=== PATIENT | male | born 1950 | race Caucasian/White ===

== ENCOUNTER 2020-02-29 21:27 | Inpatient (IN) | payer OTHER ==
[~2020-02-29] VITALS: Ht 172.7 cm; Wt 59.4 kg
[2020-02-29 23:00] VITALS: BP 136/69
[2020-02-29] MEDS ORDERED: VITCB500GO PO (23:29)
[2020-02-29] MEDS ORDERED: ASA81BEC PO (23:29)
[2020-02-29] MEDS ORDERED: VITAMIN D3 PO (23:31)
[2020-02-29] MEDS ORDERED: CLONAZEPAM 0.50.5 M1 PO (23:32)
[2020-02-29] MEDS ORDERED: CO-ENZYME Q101 EACH PO (23:33)
[2020-02-29] MEDS ORDERED: RAZADYNE ER24 MG PO (23:34)
[2020-02-29] MEDS ORDERED: FLONASE 0.05%50 MCG NASAL (23:34)
[2020-02-29] MEDS ORDERED: IPRATROPIUM BRO15 ML NASAL (23:37)
[2020-02-29] MEDS ORDERED: NIZORAL120 ML TOP (23:38)
[2020-02-29] MEDS ORDERED: MAG-OXIDE400 MG PO (23:39)
[2020-02-29] MEDS ORDERED: NAMENDA 10 MG T10 MG PO (23:39)
[2020-02-29] MEDS ORDERED: MUPIROCIN22 GM TOP (23:41)
[2020-02-29] MEDS ORDERED: ALTACE10 MG PO (23:42)
[2020-02-29] MEDS ORDERED: ZOLOFT100 MG PO (23:43)
[2020-02-29] MEDS ORDERED: CRESTOR20 MG PO (23:43)
[2020-02-29] MEDS ORDERED: TRIAMTERENE/HCT1 CA1 PO (23:44)
[2020-03-01] MEDS ORDERED: BUSPIRONE HCL10 MG PO (00:03)
[2020-03-01] MEDS ORDERED: LAMICTAL100 MG PO (00:03)
[2020-03-01] MEDS ORDERED: FOLIC ACID1 MG PO (00:03)
--- NOTE | 2020-03-01 00:51 | NUR ---
Patient admitted from [facility] beds at the [facility] by gurney and EMS transport. Patient currently lives in an apartment with his . Police have been called to their home 7 times since last Tuesday (6 days). Per hospital records, patient has displayed increased aggression, non-compliance with medication, AMS. Patient currently sees Dr. Parnell, psychiatrist, monthly and is under the care of the Alzheimer's unit at since 2010. Patient keeps unlocking the door and leaving the home. Daughter Lisa is involved. Lisa reports that the relationship between patient and is "toxic". States that "she antagonizes him and does not properly care for him and does careless things including not locking the door or getting up late in the day to provide medications for patient". Lisa reports that "pt climbed over a second story balcony and went into his neighbors home unannounced", "then fled and was missing for hours before being found in bushes near a pond". , Julia, is current DPOA. Paperwork included in chart. called the unit several times before patient was accepted by MD. verbally aggressive over the phone and calling repeatedly. displayed same behaviors with [facility]. Verbal consent was obtained over the phone for consent to treat. then spoke with patient on the phone and told him she would come get him "out". Patient has been confused since arrival. Alert and oriented to person only. Hyperactive, pacing the halls. Asking where his is and where his home is. Soft voice, rambling, disorganized. Avoiding eye contact. Not able to answer most assessment questions appropriately. Gait steady, good balance. No reports of previous falls or weight loss, by . Patient incontinent of bladder, currently wearing a brief. Per hospital records, family goal is for patient to be discharged to nursing home care placement. Patient has been having trouble following one step directions since arrival. Vital signs were able to be obtained. No aggression observed. Patient exit seeking at times, stating he was going home. Patient currently laying in bed.
[2020-03-01 08:47] VITALS: BP 134/78
--- NOTE | 2020-03-01 13:28 | NUR ---
DID TAKE AM MEDICATIONS CRUSHED IN YOGURT. WEARING HOSPITAL GOWN WANDERING IN HALLWAYS UPON ARISING THIS AM. MUMBLING TO SELF-SPEECH INCOHERENT AT TIMES,RAMBLING AND NON-GOAL DIRECTED. DID STATE CLEARLY "I HAVEN'T EATEN " ESCORTED TO DINING ROOM BY STAFF AND DID COMPLETE ENTIRE BREAKFAST.DENIES C/O PAIN. GAIT STEADY WITHOUT ASSISTIVE DEVICES. ORIENTED TO NAME ONLY
--- NOTE | 2020-03-01 17:13 | NUR ---
Patient was unable to participate in group due to decreased cognitive function.
--- NOTE | 2020-03-01 17:57 | NUR ---
INCREASINGLY AGITATED PACING RAPIDLY IN HALLWAYS WITH HANDS OVER EARS -POINTS IN DIRECTION OF A FEMALE PT YELLING LOUDLY AND STATES ANGRILY "YOU NEED TO CALL THE POLICE RIGHT NOW-SHE IS BEING HURT-HURRY UP" SECURITY CONTACTED AND DI COME TO FLOOR TO SPEAK WITH HIM .HALDOL 5MG PO PRN AT 1615 FOR INCREASING AGITATION,RESTLESSNESS
[2020-03-01 19:54] VITALS: BP 123/66
--- NOTE | 2020-03-02 01:46 | NUR ---
Assumed care of patient at change of shift. He is currently in day room walking around, talking to other patients and sitting at a table. He ambulates ad john with a slow and steady gait. He is oriented to name only. He is pleasant and cooperative and follows directions, however, patient is confused as to where he is at and what he is doing here. He cannot speak to discharge plans either.
--- NOTE | 2020-03-02 02:24 | NUR ---
Pt. was able to swallow meds with water. No coughing or choking noted after swallowing. Pt. denies pain and no signs or symptoms of pain or distress is noted. He denies any other needs. Physical assessment without gross abnormalities.
[2020-03-02 05:56] VITALS: BP 123/66
[2020-03-02 07:46] VITALS: BP 109/58
[2020-03-02 08:55] VITALS: BP 109/58
--- NOTE | 2020-03-02 13:35 | NUR ---
ASSISTED TO BATHROOM 2 2 HOURS SO FAR THIS SHIFT-DID HAVE LARGE BM AND HAS VOIDED PER TOILET X2. DENIES C/O PAIN/DISCOMFORT DURING AM CARES. IS NOTED TO HAVE SIGNIFICANT WORD FINDING DIFFICULTY AND SEVERAL TIMES DURING 1;1 RUBBED HEAD AND EYES WEARILY STATING "OH I JUST CAN'T TELL IT" EPISODES OF INCREASED ANXIETY AEB INCREASED PACING AND EXIT SEEKING,ANXIOUS DISTRESSED FACIAL EXPRESSION-DOES RESPOND TO SUPPORT AND REASSURANCE FROM STAFF. TAKES MEDS CRUSHED IN YOGURT. GAIT IS STEADY WITHOUT ASSISITVE DEVICES. ORIENTED TO PERSON ONLY.
--- NOTE | 2020-03-02 16:11 | NUR ---
Patient unable to participate in group due to cognitive deficit.
[2020-03-02 20:20] VITALS: BP 112/51
[2020-03-03 03:34] VITALS: BP 112/51
--- NOTE | 2020-03-03 06:11 | NUR ---
SLEPT 7 HOURS OVERNIGHT
--- NOTE | 2020-03-03 14:01 | NUR ---
ASSISTED TO DRESS IN CLOTHING BROUGHT IN BY YESTERDAY. DID TAKE AM MEDICATIOINS CRUSHED IN YOGURT AND ATE APPROX 95 PERCENT OF BREakfast and 100 PERCENT AT LUNCH. IS EXIT SEEKING AND WILL SEEK OUT STAFF FREQUENTLY WITH ANXIOUS FACIALEXPRESSION SEEKING SUPPORT,REASSURANCE AND REORIENTATION. STATES SEVERAL TIMES "I DON'T KNOW WHATS GOING ON HOW DID I GET HERE" DOES REQUIRE ASSIT WITH DRESSING,TOILETING AND EATING.
[2020-03-03 19:23] VITALS: BP 128/70
--- NOTE | 2020-03-03 23:10 | NUR ---
Care assumed of patient at 1915: Patient wandering about the halls and his room at start of shift. Patient alert and oriented to person only. Patient confused and forgetful. Patient having difficulty understanding simple yes/no questions. Patient "collecting" linens and clothing and making piles on his bed. Patient presents with perplexed/suspicious look. Poor short term memory. Requiring frequent re-directions on time and location. Patient has asked where his was several times. Patient took HS medication crushed in yogurt. Ate 25% yogurt cup. Patient impulsive and restless. Patient was able to fall asleep in bed for approximately 1 hour. Patient is now up pacing about his room. Denies SI/HI/AH/VH. Denies depression and anxiety. When asked some questions, patient would look up, smile and say "I'm ok", then look back down at his lap. No exit seeking behaviors observed. No agitation or aggression observed.
[2020-03-04 07:51] VITALS: BP 129/74
[2020-03-04 09:53] VITALS: BP 125/74
--- NOTE | 2020-03-04 11:21 | NUR ---
1115 RESUMMED CARE FROM OVERNIGHT SHIFT THIS AM, PATIENT UP WALKING AROUND IN DAY ROOM. PATIENT ATE BREAKFAST TOOK MEDICATION WITHOUT INCIDENCE, PATIENTS ABDOMEN SOFT AND ROUND. BOWEL SOUNDS PRESENT LUNGS CLEAR. PATIENT DENIES SI/HI/AH/VH AT PRESENT. PATIEMT HAS SOME CONFUSION ORIENTED TIMES 2 PATIENT WALKS AROUND HALLS. NO BEHAVIOR PROBLEMS JUST FORGETFUL AND SOME CONFUSIOM WILL CONTINUE TO MOMITOR PATIENT FOR SAFETY AND BEHAVIORS.
[2020-03-04 20:02] VITALS: BP 117/63
--- NOTE | 2020-03-04 22:25 | NUR ---
Care assumed of patient at 1915: Patient wandering about the halls and bedroom at start of shift. Patient alert and oriented to person only. Patient confused and forgetful. Patient having clear, rambling speech. Asking where he is multiple times and "what is going on?". Patient has perplexed appearance, lacking emotion. Denies pain or discomfort. Denies SI/HI/AH/VH. Denies depression or anxiety. Unknown if patient understands some questions asked. Patient requires simple one step directions to complete a task. Thought process disorganized. Patient ate 100% HS snack. Took HS medication crushed without difficulty. No exit seeking behaviors observed. No aggression or agitation observed. Patient assisted to the bathroom. Continent of bladder. Patient then assisted to bed. Patient was able to fall asleep without difficulty and is resting quietly at this time.
--- NOTE | 2020-03-05 09:36 | NUR ---
RODY and Dr. Melton spoke with pt's yesterday about placement and medication adjustsments. She asked that [facility] Screen pt for Medicaid. SW team will continue to follow pt during his stay on this unit.
--- NOTE | 2020-03-05 13:06 | NUR ---
RODY asked [facility] to screen pt for Medicaid. SW team will continue to follow pt during his stay on this unit.
--- NOTE | 2020-03-05 14:08 | NUR ---
EPISODES OF RESTLESSNESS,ANXIETY/MILD AGITATION SO FAR THIS AM. REPEATING SAME QUESTIONS TO STAFF EVERY 5-10 MINUTES AND DOES NOT REMEMBER EXPLAINATIONS OFFERED HE WILL ASK AGAIN IN 1-2 MINUTES. DYSPORIC MOOD-EXPRESSES FRUSTRATION OVER NOT BEING ABLE TO ARTICUALTE QUESTIONS AND MEMORY STATING "OH WHY CAN'T I REMEMBER" OR CLOSING EYES AND TAPPING HEAD WHEN HAVING DIFFICULTY WTIH WORD FINDING
--- NOTE | 2020-03-05 16:36 | NUR ---
Lesli Sierra with protective services with [place] contacted SW to confirm that pt was on the unit. She asked SW to also send confirmation of this via email to . She said she got involved due to all of the police calls made to pt's home. She believes pt needs more support than what he is getting at home. SW will continue to follow pt during his stay on this unit.
[2020-03-05 19:55] VITALS: BP 138/78
--- NOTE | 2020-03-06 04:56 | NUR ---
6-20 CARE TRANSFERRED AT 1915 OBSERVED PT IN DAY ROOM. 1920 PT AAOX1 PT PRESENTS ANXIOUS AND CONFUSED, BUT CALM AND COOPERATIVE DURING NURSING ASSESSMENT. PT DENIES ANY PAIN AND SI/SH/HI/AVH. PT HAS STEADY GAIT AND FULL ROM. OF NOTE PLEASE REFER TO NURSING INTERVENTIONS FOR MORE INFORMATION. ZERO ACUTE DISTRESS NOTED.
[2020-03-06 07:53] VITALS: BP 121/63
--- NOTE | 2020-03-06 09:44 | NUR ---
0700 ASSUMED CARE OF PATIENT, PATIENT IN BED AT THAT TIME. PATIENT TO DAYROOM FOR BREAKFAST AT 0820. RESIDENCE MANAGER ASSISTING PATIENT TO EAT. PATIENT EATS 30% OF MEAL. MEDICATIONS GIVEN WHOLE WITHOUT DIFFICULTY, C/O PAIN TO HEAD RATING A 3 TYLENOL 650MG PO GIVEN. DENIES OTHER NEEDS AT THIS TIME.
--- NOTE | 2020-03-06 11:30 | NUR ---
1000 PATIENT AMB TO ROOM WITH STEADY GAIT WITH VP RESPIRATORY. PATIENT DENIES PAIN AT THAT TIME. LS CLEAR, BS ACTIVE, DENIES NEEDS AT THAT TIME. PATIENT SITTING ON BED AND ASKS VP RESPIRATORY "I JUST DON'T KNOW WHY I AM HERE". VP RESPIRATORY EXPLAINS AND PATIENT GETS EMOTIONAL AND TEARY EYED. PATIENT IS ALERT AND ORIENTED TO SELF ONLY. VP RESPIRATORY AND PATIENT TALK, REGARDING ADMITION AND FAMILY. PATIENT STATES "I DONT REMEMBER A LOT OF THINGS, I DO NOT KNOW IF I AM , OR HAVE CHILDREN. I JUST DON'T KNOW". AFTER TALKING TO PATIENT, PATIENT AGREES HE NEEDS TO FIGURE OUT WHY HE IS FORGETFUL. PATIENT UP AND AMB IN [place], WILL CONTINUE TO OBSERVE
--- NOTE | 2020-03-07 06:48 | NUR ---
03-06-20 CARE TRANSFERED AT 191 OBSERVED PT SITTING IN DAY ROOM. 1945 PT AAOX1, PT PRESENTS ANXIOUS WITH CONFUSION WHEN ORIENATED TO PLACE. PT WAS CALM AND COOPERATIVE THROUGH NURSING ASSESSMENT. PT DENIED ANY PAIN. PT DENIED SI/SH/HI/VAH. OF NOTE, PLEASE REFER TO NURSING INTERVENTION FOR MORE INFORMATION. ZERO ACUTE DISTRESS NOTED.
[2020-03-07 07:55] VITALS: BP 112/57
--- NOTE | 2020-03-07 08:39 | NUR ---
RT Progress Note- Mohan's participation in recreational therapy groups are limited d/t his attention. Mohan will walk in and out of the day room during activity and observe- not interruptive. He is pleasant in conversation though disoriented. He has not shown any aggression during RT interactions.
--- NOTE | 2020-03-07 13:29 | NUR ---
Assess for length of stay. Admitted to [facility] for alzheimers dementia with behavioral disturbances. Eating fair to good 50-100% but also drinking Ensure enlive supplements ordered. Unsure of any wt changes prior to admit. On vitamin D for deficiency and on folic acid. On regular, vegetarian diet with finger foods. Follow wt trends. Low nutrition risk
--- NOTE | 2020-03-07 15:26 | NUR ---
0700 ASSUMED CARE OF PATIENT, PATIENT SITTING IN DAYROOM AT 0720. 0800 PATIENT SITTING IN DAYROOM WITH OTHER PATIENTS AND COMMUNICATING WELL. PATIENT EATING BREAKFAST AT THAT TIME. MEDICATIONS TAKEN WHOLE WITHOUT DIFFICULTY. NO C/O PAIN, DENIES SI/HI. PATIENT CALM AND COOPERATIVE. PATIENT CONFUSED AND RESTLESS. PATIENT WAS IN ROOM RESTLESS, PATIENT REMOVED PANTS AND WALKING AROUND IN A BLANKET CONFUSED. SERVICES MGR ASSISTED PATIENT WITH GETTING DRESSED. PATIENT COOPERATES WELL WITH DIRECTIONS. PATIENT SITTING IN DAYROOM QUIETLY, DENIES NEEDS.
[2020-03-07 19:37] VITALS: BP 110/52
--- NOTE | 2020-03-08 05:30 | NUR ---
03-07-20 CARE TRANSFERRED 1914 OBSERVED PT IN DAY ROOM, 194 PT AAOX1, CALM AND COOPERATIVE THROUGH NURSING ASSESSMENT. PT WAS EASILY REDIRECTED, THEN LATER CONTACTED HCP R/T POSSIBLE INSOMINA AND RECEIVED ORDERS AFTER PUTTING ORDERS IN NOTED PT WAS RESTING SUPINE IN BED WITH EYES CLOSED. OF NOTE, PLEASE REFER TO NURSING INTERVENTIONS FOR MORE INFORMATION. ZERO ACUTE DISTRESS NOTED. WILL CONTINUE TO MONITOR PER [facility] PROTOCOL
[2020-03-08 07:20] VITALS: BP 101/65
--- NOTE | 2020-03-08 09:27 | NUR ---
0700 ASSUMED CARE OF PATIENT, PATIENT SITTING IN DAYROOM AT THAT TIME. MEDICATIONS TAKEN WHOLE WITHOUT DIFFICULTY. NO C/O PAIN, DENIES SI/HI. AFTER BREAKFAST PATIENT CONTINUES TO SIT IN DAYROOM. WILL CONTINUE TO OBSERVE
[2020-03-08 19:00] VITALS: BP 105/55
--- NOTE | 2020-03-09 05:11 | NUR ---
Assumed care of pt @ 1900. Pt calm et cooperative with pleasant demeanor this shift. Took medications whole without difficulty. Ambulates the halls ad ojhn with steady gait. Socialized with peers in dayroom until HS. VSWNL. Health assessment with no abnormalities noted at present time. Denies SI/HI. Currently resting in bed with eyes closed. Will continue to monitor per protocol.
[2020-03-09 07:35] VITALS: BP 101/52
[2020-03-09 08:10] VITALS: BP 104/52
--- NOTE | 2020-03-09 08:48 | NUR ---
PT IN DINING ROOM. PT TOOK MEDS WITH ENCOURAGEMENT. PT STATED SHE WANTED TO TALK TO THE NURSE WITHOUT ANYONE ELSE HEARING. SAT DOWN WITH PATIENT ON COUCH. PT STATED BO IS COMEING AND WANTING TO KNOW WHO WAS HERE, TALKING ABOUT HIS DAUGHTER. ASKED PT HOW MANY DTRS HE HAS, PT DIDN'T REMEMBER.
--- NOTE | 2020-03-09 12:30 | NUR ---
PT WONDERING IN THE HALLS AND NEEDING ASSISTANCE WITH FINDING HIS ROOM TO GO TO BATHROOM.
[2020-03-09 19:20] VITALS: BP 132/100
--- NOTE | 2020-03-09 23:10 | NUR ---
ASSUMED CARE OF PATIENT AT APPROXIMATELY 1915, PATIENT IS ALERT AND ORIENTED TO SELF, HE HAS BEEN INTERACTING IN THE MILIEU WITH OTHER PATIENTS, AND APPEARS PLEASANTLY CONFUSED. HE ATTEMPTED TO HELP OTHER PATIENTS WITH DEPOSITING TRASH, BUT WOULD CONTINOUSLY BE OBSERVED DIGGING IN TRASH TO WHICH PATIENT WAS REDIRECTED AND PATIENT RESPONDED WELL TO. HE WAS PLEASANT WITH THIS NURSE IN CONVERSATION AND DENIED SI HI AND DISPLAYED NO OVERT S/S OF HALLUCINATIONS. CURRENTLY PATIENT IS IN BED WITH EYES CLOSED RR EVEN AND UNLABORED. HE DID NOT MENTION ANY MEDICAL CONCERNS DURING ONE TO ONE WITH PATIENT. NURSING WILL MAINTAIN ALL PRECAUTIONS TO ENSURE SAFETY AT ALL TIMES.
[2020-03-10 02:00] VITALS: BP 122/60
--- NOTE | 2020-03-10 02:16 | NUR ---
TOOK OVER PATIENT CARE AT 0100 AND NOTICED BP WAS UP EARLIER IN EVENING. RECHECKED BP AND IS 122/60. PATIENT IS SLEEPING. RESPIRATIONS EVEN AND UNLABORED. WILL CONTINUE TO MONITOR.
[2020-03-10 07:38] VITALS: BP 93/43
[2020-03-10 08:15] VITALS: BP 93/43
--- NOTE | 2020-03-10 09:09 | NUR ---
SW reviewed emails from [employer]. They notate that pt may be eligible for Medicaid and they are still working to complete application with pt's . SW team will continue to follow pt during his time on this unit.
--- NOTE | 2020-03-10 16:11 | NUR ---
PT IS PLAYING AIR GUITAR AND DANCING WITH STAFF. PT IN GOOD MOOD. PT STILL CONFUSED ABOUT WHERE IS ROOM IS AND WHAT TO DO HERE. PT IS EASILY REDIRECTABLE.
--- NOTE | 2020-03-10 18:54 | NUR ---
PT NEEDING ASSISTANCE WITH FINDING ROOM TODAY AND BATHROOM. PT DID DANCE TODAY AND PRETENDED TO AIR GUITAR WITH STAFF.
--- NOTE | 2020-03-10 19:18 | NUR ---
Care of patient assumed at 1915. Patient is wandering in and out of his room, forgetting each time where his room is and requiring assistance back to his room. Oriented to self only. Remains confused and often wanders into other rooms. Forgets where he puts his glasses. Reports last BM today (03/10/20). Denies pain. Denies anxiety. Denies SI/HI. Cooperative with assessment. States things have been good and denies complaints or concerns. Does not have a goal for treatment.
[2020-03-10 19:50] VITALS: BP 92/43
[2020-03-11 07:41] VITALS: BP 119/59
--- NOTE | 2020-03-11 13:01 | NUR ---
SW sent an email to [employer] asking for updates concerning pt's application. SW team will continue to follow pt during his stay on this unit.
--- NOTE | 2020-03-11 15:05 | NUR ---
Up ambulating in unit with regular gait. Confused speech. Requires frequent redirection to room/day room. Alert to name only. Denies SI/HI. Sits in day room with peers and during groups. Calm and compliant with meds. Breath sounds clear t/o. Reg HR auscultated. Color pink with brisk capillary refill and palpable peripheral pulses. No edema noted. Independent with voiding. Active bowel sounds over soft, rounded abdomen. Currently in day room, quiet without s/o distress.
[2020-03-11 19:32] VITALS: BP 112/50
--- NOTE | 2020-03-11 20:09 | NUR ---
ASSUMED CARE ON 03/11/20 @ 19:15, AMBULATING AD MARGE IN THE [facility]. COOPERATED WITH ASSESSMENT, HRRR, LUNGS CTA, ABD N X 4Q DENIES SI/HI, CONFUSED ABOUT HALLUCINATIONS, GOT AN ANSWER MORE RELATED TO HEARING ABILITY. DENIES PAIN. WANDERS AIMLELESSLY, NEEDS FREQUENT REDIRECTION AND ORIENTATION.
[2020-03-12 02:23] VITALS: BP 112/50
[2020-03-12 07:40] VITALS: BP 90/45
--- NOTE | 2020-03-12 12:00 | NUR ---
Assumed care 0700. Out in dayroom for meals. No complaints of pain. Verbally sounds confused having difficulty getting thoughts completed/coherent. Makes sense about one in 4 sentences.
--- NOTE | 2020-03-12 15:58 | NUR ---
Patient has a little tremor--spilled Ensure at breakfast. In 1 to 1 says he is not afraid to . He is concerned about his children but did not specify the exact nature of the concern. Some of the rest of his comments were mixed up. Said he would like more of his psychiatrist's time.
[2020-03-12 20:53] VITALS: BP 133/70
--- NOTE | 2020-03-12 23:46 | NUR ---
Assumed care on 03/12/20 @ 19:15, ambulating ad john throughout the mileu. Gets confused as to the location of his room, and has to be walked into the room, into the bathroom, even though he is physically able to ambulate and toilet, needs step by step direction to acomplish adls. Cooperates with assessment and compliant with medication, taking po meds whole with water. Provide with Trazadone 50mg and prn tylenol 650 provided for head pain of 5/10, at follow up assessment, noted to be asleep. Debrox ear gtts provided for ear pain as ordered. Noted to have a hand tremor bilat. In bed at this writing, eyes closed, bed in low position with bed alarm set. Will continue to monitor q 12 minutes for patient safety.
[2020-03-13 01:53] VITALS: BP 133/70
[2020-03-13 07:15] VITALS: BP 128/76
--- NOTE | 2020-03-13 10:21 | NUR ---
Nutrition: Weekly follow up. Pt continues to eat quite well for most meals. Typically eats 80-100% of a couple meals/day. Lowest intake day in the past week was on 03/08 with 10% of a few meals. He has since rebounded very nicely and back to eating substantial, adequate amounts at meals. Meal average up to 80% in the last 1.5 days. So far today eating 100% breakfast, 100% a.m. snack. Wt down 5# from 137# on 03/01 -> 132# on 03/08 if accurate. Despite slight loss, pt taking in significantly more kcals from Ensure Enlive supplements. They are ordered TID, but per patterns, pt usually consuming 100% of 2/day and likes the p.m. and h.s times best. Will decrease to BID and continue w/ these successful times to add 700 kcals, 40 g protein. Remains low nutrition risk, but continue to monitor wt to minimize further loss.
--- NOTE | 2020-03-13 11:58 | NUR ---
RT Progress Note- Mohan continues to be disoriented to location but has shown improvement in his restlessness/wandering behaviors. He is now able to remain present in recreation groups and participate to his cognitive ability. Mohan has a comedic personality and enjoys entertaining peers in the milieu. He has not displayed any adverse behaviors during RT interactions.
--- NOTE | 2020-03-13 12:43 | NUR ---
RODY contacted [employer] to see what is still needed for pt's Medicaid sydni and was told that pt's received a link with 2 forms they need back. RODY reached out to Julia who said she attempted to read the forms and they are in very fine print. She then took them to a [employer] business and they could not print them out. RODY sent an email to [employer] asking them to send her those forms in PDF form so she can print them out at the store. RODY also sent Julia a Medicare listing via email of [place] facilities in her area. RODY team will continue to follow pt during his stay on this unit.
--- NOTE | 2020-03-13 16:05 | NUR ---
Up ambulating in unit with reg gait. Needs frequent redirection to dayroom/room. Alert and orientated to self only. Confused. Rambling speech but at other times makes coherent statements. Denies SI/HI. Compliant with meds. Breath sounds clear t/o. Reg HR auscultated. Color pink with brisk capillary refill and palpable peripheral pulses. No edema. Independent with voiding. Active bowel sounds over soft, flat abdomen. Attending groups.
[2020-03-13 19:30] VITALS: BP 111/74
[2020-03-13 20:00] VITALS: BP 111/74
--- NOTE | 2020-03-13 20:52 | NUR ---
Patient has had increased urinary frequency this shift. Nurse with patient while urinating. Urine dark in color, malodorous. Labs reviewed. No UA collected at this hospital since admission. Order obtained for UA with c and s if indicated.
[2020-03-13 21:17] LABS: URINE BILIRUBIN NEGATIVE (Negative); URINE BLOOD NEGATIVE (Negative); URINE CLARITY CLEAR; URINE COLOR YELLOW; URINE GLUCOSE-RANDOM* NEGATIVE (Negative); URINE KETONES TRACE (Negative); URINE LEUKOCYTES-REFLEX NEGATIVE (Negative); URINE NITRITE-REFLEX NEGATIVE (Negative); URINE PROTEIN (DIPSTICK) NEGATIVE (Negative)
--- NOTE | 2020-03-13 22:19 | NUR ---
Assumed care of patient this pm shift. Patient out in the martin confused as to why he is here. Patient ambulates without assistance. Patient is continent of bowl and bladder. A urine was collected and sent to the labratory. Patient denies pain. Patient denies hi/si. Patient is alert and oriented to self only. Patient takes medications whole with fluids. Patients assessment shows clear breath sounds, active bowel sounds, and s1 s2 heard with auscultation. Patient requires constant reminders as to where he is and why he is here. Patients attention span is very short and his memory is very limited. We will continue to monitor per hospital protocol.
[2020-03-14 05:51] LABS: HEMATOCRIT 40.1 % (42.0-52.0); HEMOGLOBIN 13.7 gm/dL (14.0-18.0); MCH 32.4 pg (26.0-34.0); MCV 95.4 fL (80.0-100.0); RBC 4.21 mil/uL (4.50-6.00); RDW 12.4 % (10.5-14.5); WBC 4.2 thou/uL (4.0-11.0)
[2020-03-14 06:16] LABS: CREATININE 0.9 mg/dL (0.7-1.3); MAGNESIUM 2.1 mg/dL (1.8-2.4); POTASSIUM 4.1 mmol/L (3.5-5.1)
[2020-03-14 08:39] VITALS: BP 118/67
--- NOTE | 2020-03-14 10:24 | NUR ---
PATIENT CARE ASSUMED AT 0700 - PATIENT COMPLIANT WITH MEDICATIONS - TAKEN ONE PILL AT A TIME - MONITOR SINCE PATIENT HAS DIFFICULTY SWALLOWING. PATIENT CONFUSED NEEDS CONFIRMATION ON WHY HE IS - ALERT TO SELF ONLY. BECOMES RESTLESS AND ANXIOUS ON WHY HE IS HERE. DOES NOT RETAIN WHEN TOLD HE IS IN HOSPITAL - PATIENT HEART RATE STRONG AND STEADY, LUNGS CLEAR ON AUSCULATATION AND SKIN INTACT - WARM AND DRY. NEEDS ALOT OF REDIRECTION AND REASSURANCE. STEADY WHEN AMBULATING.
--- NOTE | 2020-03-14 16:15 | NUR ---
RODY spoke with Julia who gave SW an update on where she is in looking a [place] facilities. She said that she did receive the email from [employer] and she will print out the docs so she can review, and then sign the docs via the text message she received. She then asked how this works financially. RODY explained how Medicaid makes up anything her 's Soc. Sec. does not cover. She then said she has to think on this because his income and her income combined pays for their living expenses. RODY team will continue to follow pt during his stay on this unit.
[2020-03-14 19:41] VITALS: BP 128/81
--- NOTE | 2020-03-15 05:20 | NUR ---
Assumed care of pt @ 1900. Pt calm et cooperative with pleasant demeanor this shift. Took medications whole in yogurt without difficulty. Ambulates the halls ad john with steady gait. Occasionally went into dayroom to socialize with peers this shift. VSWNL. Health assessment with no abnormalities noted at present time. Denies SI/HI. Currently resting in bed with eyes closed. Will continue to monitor per protocol.
[2020-03-15 08:19] VITALS: BP 107/69
[2020-03-15 09:09] VITALS: BP 107/64
--- NOTE | 2020-03-15 10:20 | NUR ---
1015 RESUMMED CARE FROM OVERNIGHT SHIFT THIS AM, PATIENT ATE BREAKFAST AND TOOK MEDICATION WITHOUT INCIDENCE. PATIENTS ABDOMEN SOFT ROUND BOWEL SOUNDS PRESENT LUNGS CLEAR. PATIENT DENIES SI/HI/AH/VH AT PRESENT PATIENT IS STILL CONFUSED AND FORGETFUL. PATIENT IS NOT DISPLAYING ANY BEHAVIORS QUIET CALM. WILL CONTINUE TO MONITOR PATIENT FOR SAFETY AND BEHAVIORS.
[2020-03-15 20:12] VITALS: BP 93/62
--- NOTE | 2020-03-16 05:42 | NUR ---
Assumed care of pt @ 1900. Pt calm et cooperative with pleasant franchesca this shift. Took medications whole in pudding without difficulty. Ambulates the halls ad john with steady gait. VSWNL. Health assessment with no abnormalities noted at present time. Denies SI/HI. Denies any questions or concerns at present time. Currently resting in bed with eyes closed. Will continue to monitor per protocol.
[2020-03-16 08:50] VITALS: BP 114/83
--- NOTE | 2020-03-16 14:07 | NUR ---
ASSUMED CARE AT 0700 THIS MORNING. PT. UP, DRESSED AND ON THE UNIT. HE IS SOFT SPOKEN, DISORIENTED, ORIENTED TO NAME ONLY. HE HAS A FLAT AFFECT AND WANDERS ABOUT AIMLESSLY. HE SAYS HE WANTS TO FIND A BATHROOM OR HIS ROOM. WHEN HE IS TAKEN TO HIS ROOM OR THE BATHROOM, HE IS VERY DISORIENTED AND OFTEN DOES NOT RECOGNIZE SUCH. HE TURNS AROUND AND WANDERS AWAY. HE HAS NOT BEEN NOTED TO BE INCONTINENT TODAY. HE OFTEN JUST SITS DOWN ON THE FLOOR FOR NO REASON. IT IS POINTED OUT THAT HE CAN SIT ON HIS BED OR IN THE DINING ROOM. HE TAKES HIS MEDICATIONS WITHOUT PROBLEMS. IS UNABLE TO ATTEND GROUPS. HE IS VERY RESTLESS AND CANNOT SIT STILL FOR A LONG ENOUGH PERIOD OF TIME TO ATTEND GROUPS NOR CAN HE FOCUS ON THEM.
--- NOTE | 2020-03-16 15:40 | NUR ---
SW spoke to pt's to following up on status of Medicaid documents being sent. Pt's informed that she had just received the application in the mail and had not had a chance to look at it yet. She also stated she is waiting for her daughter who will be in town this week to help her complete it. RODY updated team.
--- NOTE | 2020-03-16 15:59 | NUR ---
Pt unable to participate in group due to cognitive deficit.
[2020-03-16 19:20] VITALS: BP 102/55
--- NOTE | 2020-03-16 21:22 | NUR ---
Care assumed of patient at 1915: Patient pacing about the halls at start of shift. Patient observed to be sitting in the floor in his doorway and hallway. Attempted to direct patient to dining room chair or bed for comfort. Patient stating he is fine. With re-direction, patient able to stand and move to more comfort position. Patient alert and oriented to person only. Patient confused and forgetful. Patient having trouble remembering subjects that were discussed 60 seconds prior. Patient denies pain or discomfort. Denies anxiety and depression. No tearfulness observed. Presents with flat/blunted affect. Patient did receive a phone call. Appeared to have minimal discussion on phone. Patient continent of bladder and bowel. Took HS medication whole without difficulty. Patient having trouble following one step directions such as laying down in bed with his head placed at the head of the bed. Patient was able to fall asleep without difficulty once laying in bed and is resting quietly at this time. No agitation or exit seeking behaviors observed thus far this shift.
--- NOTE | 2020-03-17 05:42 | NUR ---
Assumed care of patient from RN mid-shift. Patient in good spirits up off and on during the night. Patient confused about where he is at and what he is supposed to be doing. Patient alert and oriented to self. We will continue to monitor per hospital policy.
[2020-03-17 07:30] VITALS: BP 123/76
[2020-03-17 20:13] VITALS: BP 110/62
[2020-03-17 22:00] VITALS: BP 110/62
--- NOTE | 2020-03-18 04:11 | NUR ---
Assumed care of patient this pm shift. Patient wondering in the halls looking for his bedroom at the start of the shift. Patient is pleasantly confused. Patient is in good spirits and very polite. Patient is alert and oriented to self only. Patient denies pain. Patient denies avh. Patient denies si/hi. Patient is ambulatory. Patient is not a high fall risk. Patient is medication adherent and takes medications whole with fluids. Patients assessment shows clear breath sounds, active bowel sounds, and s1 s2 heard with auscultation. We will continue to monitor per hospital protocol.
[2020-03-18 09:06] VITALS: BP 102/59
[2020-03-18 11:19] VITALS: BP 102/59
--- NOTE | 2020-03-18 11:25 | NUR ---
1125 RESUMMED CARE FROM OVERNIGHT SHIFT THIS AM, PATIENT IN ROOM LYING QUIETLY. I ASKED PATIENT TO COME TO DAY ROOM FOR BREAKFAST HE ATE TOOK MEDICATION WITHOUT INCIDENCE. PATIENT ABDOMEN SOFT ROUND BOWEL SOUNDS PRESENT LUNGS CLEAR. PATIENT KEEPS ASKING WHEN HE CAN LEAVE I TOLD PATIENT IT WILL BE A FEW DAYS. PATIENT IS CONFUSED FORGETFUL ORIENTED TO SELF ONLY, PATIENT COOPERATIVE SOMETIMES WALKS AROUND THE HALLS. PATIENT IS ANXIOUS AT TIMES WILL CONTINUE TO MONITOR PATIENT FOR SAFETY AND BEHAVIORS.
--- NOTE | 2020-03-18 12:48 | NUR ---
RODY received noticed from [facility] director that pt's insurance has stopped issuing payments on his current stay. RODY contacted pt's about this and about getting the Medicaid docs. She said she attempted to fax from [employer] and it did not go through. RODY confirmed the fax number, which Julia said was not the number she had. She said she will try to fax again. Julia stated "I guess I'm back to paying $200 a day." RODY corrected her by explaining a stay on this unit without insurance is approx. $1000 a day. Julia immediately became flustered and said that she will pick him up today. She said she has been trying to find placement and nothing is happening. RODY reminded her that she is supposed to help with that, and that RODY has been attempting to get things done quickly for pt so that this did not happen. She did convince Julia to not pick pt up until 03/19 @11 am. Julia said she would provided an update to her daughter Sue. RODY received a call from pt's daughter Sue Adams who said she has been attempting to place pt. RODY explained to her that is part of duties. Sue said she did not know that. Sue said that her mother has not done anything and likely will not return those Medicaid forms. She said that she may have found a couple options. RODY told her she was happy to send referrals; however, she cannot do so under the pretense of pt being Medicaid pending because it hasn't been applied for. Sue said she understands. She asked RODY to send referrals to [facility], [place], [place] [facility], and [place]. RODY team will continue to follow pt during his stay on this unit.
[2020-03-18 19:34] VITALS: BP 92/54
--- NOTE | 2020-03-19 05:29 | NUR ---
Assumed care of pt @ 1900. Pt calm et cooperative with pleasant demeanor this shift. Took medications whole in yogurt without difficulty. Ambulates the halls ad john with steady gait. Socialized in dayroom but was not able to engage with peers. VSWNL. Health assessment with no abnormalities noted at present time. Unable to assess SI/HI due to pt's inability to communicate clearly. Pt does not appear to be in any acute emotional distress at present time. Currently restin in bed with eyes closed. Will continue to monitor per protocol.
[2020-03-19 07:30] VITALS: BP 128/50
[2020-03-19] MEDS ORDERED: ASPIR 8181 MG PO (09:39)
[2020-03-19] MEDS ORDERED: SERTRALINE HCL50 MG PO (09:40)
[2020-03-19] MEDS ORDERED: HALOPERIDOL 1 MG1 MG PO (09:40)
[2020-03-19] MEDS ORDERED: VITAMIN D325 MCG PO (09:41)
[2020-03-19 09:45] VITALS: BP 128/50
--- NOTE | 2020-03-19 11:59 | NUR ---
Reji was sleepig when I first arrived on duty. Mohan ate all food offered to Him Heart sounds clear, Pedal pulse strong, no edema noted and no bm today. No comllaints offered. picked Mohan up and along with /c medications and d/c instructions.
--- NOTE | 2020-03-19 13:47 | NUR ---
RODY D/C note RODY scheduled a doctor's appt with Dr. Todd with [facility] for March 04, 2020 @09:30 a.m. RODY faxed d/c docs to Dr. Todd. RODY will file them with the conf. page in pt's hospital file. No other needs for RODY team to address at this time.
[2020-03-19 15:52] VITALS: BP 128/50
[2020-03-19 16:52] VITALS: BP 128/50
--- NOTE | 2020-03-19 17:16 | NUR ---
PT. LEFT AT 1020 THIS MORNING. HE RETURNED HOME WITH HIS .
--- NOTE | 2020-03-20 11:51 | D ---
[facility] [place] [address] DISCHARGE SUMMARY Name: SHAHAB CARRANZA Room #: 520B-B [facility] IN M.R.#: [id number] Admission: 02/29/20 Attend Phys: Levar Melton DO Discharge: 03/19/20 Date of : 48 Report #: [id number] THIS REPORT FOR: cc: KAREN Cade family physician/PCP KAREN - No family physician/PCP Levar Melton DO ~ THIS REPORT FOR: //name// CC: Levar Melton FAM physician/PCP DATE OF SERVICE: 03/19/2020 ATTENDING PSYCHIATRIST: Levar Melton DO STONE POLISHER MACHINE AT THE TIME OF DISCHARGE: Tate Booth MD DISCHARGE DIAGNOSES: Major neurocognitive disorder, likely due to Alzheimer's disease with behavioral disturbance, improved. Medical comorbidities include hypertension, hyperlipidemia, insomnia, vitamin D deficiency. DISCHARGE PLAN: The patient is discharging on a regular diet, Ensure, Enlive twice daily recommended for supplementation. The patient will be discharging to his 's home. I am recommending patient to be placed in memory care as soon as possible by the family. There was fair amount of delay in getting the patient Medicaid pending. At this point, he is not meeting criteria for this level of care and therefore, the family will take care of him, 25/04 care has been advised for supervision. DISCHARGE MEDICATIONS: Aspirin 81 mg oral twice a day for heart protection, sertraline 50 mg p.o. daily for history of depression, Haldol 2 mg p.o. 3 times a day for psychosis and impulse control, cholecalciferol 5000 International Units p.o. daily for supplementation, memantine 10 mg p.o. b.i.d. for cognitive enhancement, lisinopril 10 mg p.o. twice daily, hydrochlorothiazide/triamterene 37.5/25 one-half tab p.o. daily for hypertension, lamotrigine oral 100 mg p.o. b.i.d. for depression and mood stabilization. REASON FOR ADMISSION: Back to the end of January was as follows: A 69-year-old male brought in for increased agitation and aggression. He has been living at home with his who is the patient's DPOA. Per review, the patient sees Dr. Coleman at memory care care clinic at . The patient was a poor historian. HOSPITAL COURSE: The patient was admitted to Geriatric Psychiatry Unit. [address] [address] DISCHARGE SUMMARY Name: SHAHAB CARRANZA Room #: 520B-B [facility] IN [facility]#: [id number] Admission: 02/29/20 Attend Phys: Levar Melton DO Discharge: 03/19/20 Date of : 48 Report #: [id number] some background information as well from Dr. Rodolfo Parnell admission, elected to go ahead with Haldol in the patient's case. There was initially concern for superimposed delirium, I did feel that was polypharmacy. He was up to 200 mg a day of sertraline, so I reduced that, eliminated benzodiazepine and eliminated a statin medication given his limited life expectancy. The patient's stay got a bit prolonged There was a misunderstanding on the part of the that placement was not able to be got until the patient was officially Medicaid pending and there was a significant delay in completion of the Medicaid application by the family, also the insurance new directions denied care. On discussing the options, elected to have the patient come home. She is advised to his elopement risk and need for 24/7 care and supervision, so family will handle that as best they can. CONDITION ON DAY OF DISCHARGE: Stable. LABORATORY DATA: This admission, H and H 13.7 and 40.1, white count 4.2, platelets 193 on 03/14/2020. Chemistries include sodium 139, potassium 4.1, chloride 100, bicarbonate 31, anion gap 8, creatinine 0.9, BUN 33, glucose 88, calcium 9.0, vitamin D 34.1. B12 level 449, magnesium 2.1. Urinalysis was clean. COVID-19 PCR done on 03/16/2020 was negative. MENTAL STATUS EXAMINATION: VITAL SIGNS: On the day of discharge, temperature 36.6, pulse 61, respirations 15, BP 128/50, O2 sat 100%. MUSCULOSKELETAL: Frail thin male. BMI 19.9. MENTAL STATUS EXAMINATION: This is a well-developed, ill-appearing male appearing at least stated age. Attention limited. Concentration limited. Speech slowed. Thought process linear and very limited. Thought content, relative poverty of thought, a lot of times obsessional thinking about his daughter seen him. No psychomotor agitation, slight psychomotor retardation. Denied suicidal or homicidal ideation. No auditory, visual, or tactile hallucinations. Some hopelessness, some helplessness. Insight limited. Judgment impaired. Fund of knowledge well below baseline. PROGNOSIS: For this patient is guarded to poor given the very advanced nature of his dementia, placement in Memory Care facility is strongly urged. <ELECTRONICALLY SIGNED> By: Levar Melton, 03/20/20 1151 2106 2149 Levar Melton, DO /nt
== END 2020-03-19 10:20 | disposition home or self-care (01) | DRG 57 ==
LOC: SBH
PROVIDERS: Internal Medicine; Nurse Practitioner Family; ADMIT Psychiatry & Neurology Psychiatry; ATTEND Psychiatry & Neurology Psychiatry
DX: G30.9 Alzheimer's disease, unspecified (principal); F02.81 Dementia in other diseases classified elsewhere, unspecified severity, with behavioral disturbance; F01.51 Vascular dementia, unspecified severity, with behavioral disturbance; F22 Delusional disorders; I10 Essential (primary) hypertension; E78.5 Hyperlipidemia, unspecified; G47.00 Insomnia, unspecified; E55.9 Vitamin D deficiency, unspecified; F32.9 Major depressive disorder, single episode, unspecified; F41.9 Anxiety disorder, unspecified; Z87.891 Personal history of nicotine dependence; Z03.818 Encounter for observation for suspected exposure to other biological agents ruled out
CPT/HCPCS: 10880

== ENCOUNTER 2020-03-25 00:47 | Inpatient (IN) | payer OTHER ==
[~2020-03-25] VITALS: Ht 177.8 cm; Wt 77.6 kg
--- NOTE | ~2020-03-25 | EMS ---
[facility] [address] [place] [address] EMS Patient Care Report Name: SHAHAB CARRANZA Room #: 523B-B ADM IN M.R.#: [id number] Admission: 03/25/20 Attend Phys: Levar Melton DO Discharge: Date of : 48 Report #: [id number] THIS REPORT FOR: //name// Report Transmitted: 03/25/2020 12:48 EMS Care Summary [facility] MED-ACT Incident [id number] @ 03/25/2020 00:08 Incident Location [address] [place] [address] Patient SHAHAB CARRANZA Male, 69 Years 1950 Patient Address [address] [place] [address] Patient History Hypertension (HTN),Alzheimer's,Hyperlipidemia,Cardiac - Stent,Depression, Patient Allergies No known allergies, Patient Medications Buspirone, Memantine, Ramipril, Rosuvastatin, Other, Lamotrigine, Clonazepam, Sertraline, Triamterene, Chief Complaint none indicated by pt Disposition Transported No Lights/[place] Dispatch Reason Sick Person Transported To [facility] Narrative Pt lives at home with his for now. He was recently hospitalized at [facility] [address] [place] [address] EMS Patient Care Report Name: SHAHAB CARRANZA Room #: 523B-B ADM IN M.R.#: [id number] Admission: 03/25/20 Attend Phys: Levar Melton, DO Discharge: Date of : 48 Report #: [id number] Jose for almost two weeks and released. He has advanced Alzheimer's disease and is no longer alert to anything. He was discharged and sent home five days ago. His says that she cannot care for him and that they had made arrangements for him to be admitted into a [facility] care facility. He was supposed to go there tomorrow after being tested for Covid-19. Tonight, pt's says that she can no longer go on trying to take care of him. She says that he has been urinating and "pooping" all over the house. She appears very distraught. Pt found laying in a position on the living room floor. He does not talk much and if he does it is one or two words at a time. No obvious external trauma noted. Dried stool noted to left neck and ear. Moves all extremities. Spoke to one of pt's daughters on the phone and she advised EMS to take him back to [facility]. She spoke with him mother on the phone and discussed this plan with her. was agreeable to this. She did have some concerns about going back to [facility] because they "let him out of the hospital too soon last time". She did agree to it though. Pt was moved to cot. Transported without incident to ER. Released with report. Initial Vitals @00:37P: 65,R: 20,SpO2: 93, @00:21P: 86,R: 20,BP: 97/62,SpO2: 95, @00:32P: 82,R: 16,BP: 102/67,Glucose: 84,SpO2: 93, @00:20P: 69,R: 20,BP: 89/65,GCS: 13,SpO2: 96,Revised Trauma: 11, @00:40P: 63,R: 20,BP: 91/57,GCS: 13,SpO2: 93,Revised Trauma: 12, Assessments @00:25MENTAL:Confused,SKIN:No Abnormalities,HEENT:Head/Face: No Abnormalities,Eyes: No Abnormalities,Neck/Airway: No Abnormalities,LUNG SOUNDS:General: No Abnormalities,Left Upper: No Abnormalities,Right Upper: No Abnormalities,Left Lower: No Abnormalities,Right Lower: No Abnormalities,ABDOMEN:General: No Abnormalities,Left Upper: No Abnormalities,Right Upper: No Abnormalities,Left Lower: No Abnormalities,Right Lower: No Abnormalities,PELVIS//GI:No Abnormalities,EXTREMITIES:Left Arm: No Abnormalities,Right Arm: No Abnormalities,Left Leg: No Abnormalities,Right Leg: No Abnormalities,PULSE:NEURO: Impression Confusion/Delirium Procedures @00:35ALS AssessmentResponse: UnchangedSucceeded@00:35Surgical Mask on PatientResponse: Unchanged Timeline 00:04,Call Received [facility] [address] [place] [address] EMS Patient Care Report Name: SHAHAB CARRANZA Room #: 523B-B ADM IN M.R.#: [id number] Admission: 03/25/20 Attend Phys: Levar Melton DO Discharge: Date of : 48 Report #: [id number] 00:04,Psap Call 00:08,Dispatched 00:09,En Route 00:14,On Scene 00:16,At Patient 00:20,BP: 89/65 M,PULSE: 69,RR: 20 R,SPO2: 96 Ox,ETCO2: ,BG: ,PAIN: ,GCS: 13, 00:21,BP: 97/62 M,PULSE: 86,RR: 20 R,SPO2: 95 Ox,ETCO2: ,BG: ,PAIN: ,GCS: , 00:32,BP: 102/67 M,PULSE: 82,RR: 16 R,SPO2: 93 Ox,ETCO2: ,B,PAIN: ,GCS: , 00:34,Depart Scene 00:35,ALS Assessment,Response: UnchangedSucceeded, 00:35,Surgical Mask on Patient,Response: Unchanged 00:37,BP: / M,PULSE: 65,RR: 20 R,SPO2: 93 Ox,ETCO2: ,BG: ,PAIN: ,GCS: , 00:40,BP: 91/57 M,PULSE: 63,RR: 20 R,SPO2: 93 Ox,ETCO2: ,BG: ,PAIN: ,GCS: 13, 00:42,At Destination 00:56,Call Closed Disclaimer v1.1 Copyright 2020 [employer] This EMS Care Summary contains data elements from the applicable legal record (which may be displayed differently). It is designed to provide pertinent information for the following purposes: continuity of care, clinical quality, and state data reporting. The complete legal record is available to ED staff and administrators of the receiving hospital in [employer] Patient Tracker. All data is provided "as is."
[~2020-03-25 00:47] MED LIST: ALTACE10 MG PO; ASA81BEC PO; ASPIR 8181 MG PO; BUSPIRONE HCL10 MG PO; CLONAZEPAM 0.50.5 M1 PO; CO-ENZYME Q101 EACH PO; CRESTOR20 MG PO; FLONASE 0.05%50 MCG NASAL; FOLIC ACID1 MG PO; HALOPERIDOL 1 MG1 MG PO; IPRATROPIUM BRO15 ML NASAL; LAMICTAL100 MG PO; MAG-OXIDE400 MG PO; MUPIROCIN22 GM TOP; NAMENDA 10 MG T10 MG PO; NIZORAL120 ML TOP; RAZADYNE ER24 MG PO; SERTRALINE HCL50 MG PO; TRIAMTERENE/HCT1 CA1 PO; VITAMIN D3 PO; VITAMIN D325 MCG PO; VITCB500GO PO; ZOLOFT100 MG PO
[2020-03-25 00:51] VITALS: BP 90/50
[2020-03-25 01:37] LABS: ABSOLUTE NEUTROPHILS 4.6 thou/uL (1.4-8.2); BASOPHILS 0.5 % (0.0-2.0); EOSINOPHILS 0.8 % (0.0-3.0); HEMATOCRIT 37.4 % (42.0-52.0); HEMOGLOBIN 12.7 gm/dL (14.0-18.0); MCH 32.3 pg (26.0-34.0); MCHC 34.1 g/dL (28.0-37.0); MCV 94.8 fL (80.0-100.0); MONOCYTES 5.8 % (1.0-8.0); PLATELET COUNT 215 thou/uL (150-400); POLYS 71.9 % (36.0-66.0); RBC 3.95 mil/uL (4.50-6.00); RDW 12.2 % (10.5-14.5); WBC 6.5 thou/uL (4.0-11.0)
[2020-03-25 01:47] LABS: CALCIUM 8.7 mg/dL (8.5-10.1); CREATININE 1.1 mg/dL (0.7-1.3); POTASSIUM 3.5 mmol/L (3.5-5.1)
[2020-03-25 01:53] LABS: ALBUMIN 3.7 g/dL (3.4-5.0); DIRECT BILIRUBIN 0.1 mg/dL (<0.1-0.2); TOTAL BILIRUBIN 0.5 mg/dL (0.2-1.0); TOTAL PROTEIN 6.4 g/dL (6.4-8.2)
[2020-03-25 02:05] LABS: URINE BILIRUBIN NEGATIVE (Negative); URINE BLOOD TRACE (Negative); URINE CLARITY CLEAR; URINE COLOR YELLOW; URINE GLUCOSE-RANDOM* NEGATIVE (Negative); URINE KETONES TRACE (Negative); URINE LEUKOCYTES-REFLEX NEGATIVE (Negative); URINE NITRITE-REFLEX NEGATIVE (Negative); URINE PROTEIN (DIPSTICK) NEGATIVE (Negative); URINE SPECIFIC GRAVITY 1.025 (1.005-1.035); URINE UROBILINOGEN 0.2 E.U./dl (0.2-1.0)
[2020-03-25 02:36] VITALS: BP 93/49
--- NOTE | 2020-03-25 08:08 | EKG ---
[facility] [place] [address] ELECTROCARDIOGRAM REPORT Name: SHAHAB CARRANZA Room #: [facility] ADM IN M.R.#: [id number] Admission: 03/25/20 Attend Phys: Levar Melton DO Discharge: Date of : 48 Report #: [id number] THIS REPORT FOR: cc: [facility] - Clinic physician unknown [facility] - Clinic physician unknown Magnus Romero MD [facility] ~ THIS REPORT FOR: //name// [facility] ED Test Date: 2020-03-25 Test Time: 01:13:18 Pat Name: SHAHAB CARRANZA Department: Room: [facility] Gender: M Desk Clerk: no : 1950 Requested By: Carol Gardner Order Number: [id number] MD: Magnus Romero Measurements Intervals [place] Rate: 53 P: 83 NE: 204 QRS: 6 QRSD: 97 T: 43 QT: 425 QTc: 399 Interpretive Statements Sinus rhythm Poor R wave progression No previous ECG available for comparison Electronically Signed On 03-25-2020 8:07:47 CDT by Magnus Romero [email or web address] <ELECTRONICALLY SIGNED> By: Magnus Romero MD, [facility] 03/25/20 0807 0113 2 Mangus Romero MD, [facility] /EPI
[2020-03-25 11:35] VITALS: BP 110/51
[2020-03-25 19:23] VITALS: BP 115/95
[2020-03-25 22:00] VITALS: BP 115/95
[2020-03-26 09:22] VITALS: BP 107/66
[2020-03-26 20:15] VITALS: BP 107/66
[2020-03-27 08:49] VITALS: BP 116/64
[2020-03-27] MEDS ORDERED: LISINOPRIL5 MG PO (10:01)
[2020-03-27] MEDS ORDERED: LAMICTAL100 MG PO (10:02)
[2020-03-27] MEDS ORDERED: HALOPERIDOL 1 MG1 MG PO (10:07)
[2020-03-27] MEDS ORDERED: SERTRALINE HCL50 MG PO (10:07)
[2020-03-27] MEDS ORDERED: COLACE 100 MG100 MG PO (10:08)
[2020-03-27] MEDS ORDERED: NAMENDA 5 MG TAB5 M1 PO (10:08)
--- NOTE | 2020-03-27 18:25 | H ---
[facility] [place] [address] HISTORY AND PHYSICAL Name: SHAHAB CARRANZA Room #: 523B-B [facility] IN M.R.#: [id number] Admission: 03/25/20 Attend Phys: Levar Melton DO Discharge: 03/27/20 Date of : 48 Report #: [id number] THIS REPORT FOR: cc: [facility] - Clinic physician unknown [facility] - Clinic physician unknown Levar Melton DO ~ CC: Levar JONES unknown DATE OF SERVICE: 03/25/2020 INPATIENT PSYCHIATRIC EVALUATION ATTENDING PHYSICIAN: Levar Melton DO. BOX ATTACHER: Giovanny Stone MD REASON FOR CONSULTATION: Dementia with behavioral disturbance. Information predominantly from chart and the patient's daughter called in this morning. Apparently, there is some disagreement between the daughters and the over care plans for patient. Also, unfortunately, there is a [facility]uentes Emergency Room note I am not able to pull up and that is not helping things. The patient was picked up by [facility]. Apparently, no chief complaint was indicated. He lives at home with his . He was discharged 2 weeks ago, has advanced Alzheimer's disease. No longer alert to anything. His states that she cannot care for him and they have made arrangements for him to be admitted into a long-term care facility, that facility turns out to be [facility]. He was supposed to go there tomorrow after being tested for COVID-19. When EMS arrived, the patient's said that she can no longer go on trying to care for him. She says that he has been urinating and pooping all over the house. The appeared very distraught. The patient was found lying in position on living room floor, does not talk much and if he does it is 1-2 words at a time. No obvious trauma noted by EMS. Dried stool noted to left neck and ear. He moves all extremities. Evidently, they talked with one of the patient's daughters on the phone and she advised him to take back to [facility]. She spoke with her mother on the phone and discussed this plan. was agreeable. She does have some concerns because he was "let him out of the hospital too soon". She did agree to though and for some reason, there is no ER physical. There is a summary report from the ER. It states spouse called saying she was unable to take care of the patient. There was fecal matter all over his body. LABORATORY DATA: Laboratories done in the ER early this morning. Hematology: H and H 12.7 and 37.4, white count of 6.5, platelet count 215. Sodium 135, potassium 3.5, chloride 96, bicarbonate 30, anion gap 9, BUN 29, creatinine 1.1, [facility] [address] [place] [address] HISTORY AND PHYSICAL Name: SHAHAB CARRANZA Room #: 523B-B [facility] IN M.R.#: [id number] Admission: 03/25/20 Attend Phys: Levar Melton DO Discharge: 03/27/20 Date of : 48 Report #: [id number] estimated GFR 66, glucose 97. Calcium 8.7, total bilirubin 0.5, direct bilirubin 0.1, AST 18, ALT 25, alkaline phosphatase 71. Total protein 6.4, albumin 3.7. Urinalysis, trace ketones, trace blood, otherwise negative. Additional history from the patient's previous admission is as follows: ALLERGIES: No known allergies. PAST MEDICAL HISTORY: Hypertension, hyperlipidemia, insomnia, vitamin D deficiency. PSYCHIATRIC HISTORY: Alzheimer's dementia. SURGICAL HISTORY: Unknown. SOCIAL HISTORY: Alcohol and drug use denied. REVIEW OF SYSTEMS: The patient grossly denied nausea, vomiting, fever, diarrhea or chills. He appears frail, undernourished. Otherwise, given his degree of dementia, only limited review of systems was able to be performed. SOCIAL HISTORY: Lives with his of over 40 years. PSYCHIATRIC HOSPITALIZATION HISTORY: He was admitted on 02/29/2020 and discharged on 03/19/2020, so he was only out of the hospital about 6 days. PHYSICAL EXAMINATION: VITAL SIGNS: Temperature 36.5, pulse 71, respirations 20, BP 115/95, O2 sat 99%. MUSCULOSKELETAL: Normal gait and station. It is a bit slow. MENTAL STATUS EXAMINATION: This is a well-developed, ill-appearing, frail male, appearing a bit different than last time, he has grown a moustache. Attention limited. Concentration limited. Speech slow. Thought process is linear and goal directed at times, other times confused. Thought content, generalized poverty of thought. No psychomotor agitation. No psychomotor retardation. Denied suicidal intent or plan. Did endorse helplessness, hopelessness. Denied homicidal intent or plan. Denied auditory, visual, or tactile hallucinations. Memory grossly impaired. Insight impaired, judgment impaired. Fund of knowledge well below average. FORMULATION: This is a 69-year-old male with known history of major neurocognitive disorder due to Alzheimer's disease, brought back due to the 's inability to care for the as they were attempting placement in a day or two and apparently, she did make it getting the patient in [facility]. [facility] [address] [place] [address] HISTORY AND PHYSICAL Name: SHAHAB CARRANZA Room #: 523B-B [facility] IN [facility]#: [id number] Admission: 03/25/20 Attend Phys: Levar Melton, DO Discharge: 03/27/20 Date of : 48 Report #: [id number] DIAGNOSIS: Major neurocognitive disorder due to Alzheimer's disease. PLAN: Evaluate, stabilize, obtain collateral. Regarding his medications, lisinopril 5 mg daily ordered, docusate 100 mg p.o. daily ordered, ____ 20 mg p.o. daily ordered, sertraline 50 mg p.o. daily ordered, memantine 10 mg p.o. b.i.d. It looks like the hospitalist discontinued lisinopril, triamterene/hydrochlorothiazide. Lamotrigine 100 mg p.o. b.i.d. continue, Haldol 2 mg p.o. 3 times a day continue, cholecalciferol 5000 International Units daily continue, aspirin 81 mg p.o. daily continue; these were largely his home meds, I am not 100% sure about his compliance. It looks like he did get some IV Haldol in the ER as well as some Seroquel. I would like to do a quick turnaround on this one and get him to a memory care, which is what he needs. This is a case with unfortunate poor prognosis. I am going to go ahead and change him from full code to no code given the degree of his dementia and if he did have a cardiopulmonary arrest, there would be a very low likelihood of improvement or survival. Time spent on interview, review of records, coordination of care of this patient is about 45 minutes. STRENGTHS: He is insured, supportive family. WEAKNESSES: Advanced dementia. <ELECTRONICALLY SIGNED> By: Levar Melton DO 03/27/20 1825 57 45 Levar Melton DO /nt
--- NOTE | 2020-03-28 22:02 | D ---
[facility] [place] [address] DISCHARGE SUMMARY Name: SHAHAB CARRANZA Room #: 523B-B [facility] IN M.R.#: [id number] Admission: 03/25/20 Attend Phys: Levar Melton DO Discharge: 03/27/20 Date of : 48 Report #: [id number] THIS REPORT FOR: cc: [facility] - Clinic physician unknown [facility] - Clinic physician unknown Levar Melton DO ~ THIS REPORT FOR: //name// CC: Levar Melton [facility] unknown DATE OF SERVICE: 03/27/2020 INPATIENT PSYCHIATRIC DISCHARGE SUMMARY ATTENDING PHYSICIAN: Levar Melton DO DATA CENTER ENGINEER AT THE TIME OF DISCHARGE: Tate Booth MD COLLABORATOR DISCHARGE DIAGNOSES: Major neurocognitive disorder, likely due to Alzheimer's disease, advanced with behavioral disturbance, improved. MEDICAL COMORBIDITIES THIS ADMISSION: Include hypertension, hyperlipidemia, vitamin D deficiency. DISCHARGE DIET: Regular diet with Ensure Max. DISCHARGE ACTIVITY LEVEL: As tolerated. The patient requires 24/7 memory care. DISCHARGE MEDICATIONS: Lisinopril 5 mg oral daily for hypertension, lamotrigine 100 mg p.o. b.i.d. for mood stabilization, sertraline 50 mg p.o. daily for depression, Haldol 2 mg p.o. 3 times a day for psychosis, Namenda 10 mg p.o. b.i.d. for cognitive enhancement, docusate 100 mg p.o. daily for bowel motility, aspirin 81 mg p.o. daily for heart protection, cholecalciferol 5000 International Units daily for vitamin D deficiency. LABORATORY DATA: This admission 03/25/2020. Hematology: Hemoglobin 12.7, and 37.4, white count of 6.5, platelet 215. Chemistries this admission, sodium 135, potassium 3.5, chloride 96, bicarbonate 30, anion gap 9, BUN 29, creatinine 1.1, estimated GFR 66, glucose 97, calcium 8.7, total bilirubin 0.5, direct bilirubin 0.1, AST 18, ALT 25, alkaline phosphatase 71, total protein 6.4, albumin 3.7. Urinalysis showed trace ketones, trace blood, otherwise within normal limits. COVID-19 PCR serology done on 03/26/2020 was negative. REASON FOR ADMISSION: At this time was as follows 69-year-old male brought to ER by ambulance due to the being unable to care for him in the home. He [address] [address] DISCHARGE SUMMARY Name: SHAHAB CARRANZA Room #: 523B-B [facility] IN [facility]#: [id number] Admission: 03/25/20 Attend Phys: Levar Melton DO Discharge: 03/27/20 Date of : 48 Report #: [id number] had previously been discharged about a week prior. The family had ____ placement in [facility] but had not physically ____ admitted there yet. HOSPITAL COURSE: The patient was admitted to Geriatric Psychiatry Unit. Essentially unchanged medication regimen from his time of discharge. We kept him safe for a couple of days, got COVID-19 PCR done today, , 03/27/2020, discharging the [place], not suicidal or homicidal on day of discharge, ambulating freely about the unit. Psychiatric medical care to be provided by receiving facility. DISCHARGE PHYSICAL EXAMINATION: VITAL SIGNS: Temperature 36.6, pulse 60, respirations 13, BP 107/67, O2 sat 99%. MUSCULOSKELETAL: Normal gait and station. Pale appearing. MENTAL STATUS EXAMINATION: This is a well-developed, fairly nourished male, appearing stated age. Attention limited. Concentration limited. Speech: Soft, slow. Thought process is linear and goal directed. Thought content, relative poverty of thought. No psychomotor agitation, slight psychomotor retardation. Denied SI or HI. Denied auditory, visual, or tactile hallucinations. Mood and affect are constricted, congruent felt to be baseline. Insight limited. Judgment limited. Fund of knowledge well below average. PROGNOSIS: For this patient is guarded to poor given advanced dementia at age of 69. He will require ongoing memory care until he passes away I expect. <ELECTRONICALLY SIGNED> By: Levar Melton DO 03/28/202201 06 35 Levar Melton, /nt
== END 2020-03-27 13:15 | DRG 57 ==
LOC: ER 00:47 → EROBS 02:24 → SBH 02:24 → EROBS 02:24 → SBH 02:51
PROVIDERS: Emergency Medicine; ADMIT Psychiatry & Neurology Psychiatry; ATTEND Psychiatry & Neurology Psychiatry
DX: G30.9 Alzheimer's disease, unspecified (principal); F02.81 Dementia in other diseases classified elsewhere, unspecified severity, with behavioral disturbance; F01.51 Vascular dementia, unspecified severity, with behavioral disturbance; I10 Essential (primary) hypertension; E78.5 Hyperlipidemia, unspecified; G47.00 Insomnia, unspecified; E55.9 Vitamin D deficiency, unspecified; Z20.828 Contact with and (suspected) exposure to other viral communicable diseases; F41.9 Anxiety disorder, unspecified; F32.9 Major depressive disorder, single episode, unspecified; Z87.891 Personal history of nicotine dependence; Z79.82 Long term (current) use of aspirin; Z79.899 Other long term (current) drug therapy
CPT/HCPCS: 10880